=== PATIENT | female | born 1990 | race Hispanic/Latino ===

== ENCOUNTER 2017-06-12 19:29 | Emergency (ER) | payer MEDICAID ==
[2017-06-12 19:46] VITALS: RESP 16; TEMP 97.8
[2017-06-12] MEDS ORDERED: Dexamethasone 4 mg/1 ml IVP STA (20:28)
--- NOTE | 2017-06-12 20:38 | C.PDOC ---
History Of Present Illness The patient reports 4-5 days history of swelling to the left jaw. The patient was being treated for a possible dental abscess with Clindamycin, but then had sudden onset of swelling to the right side of the jaw today. Patient reports that she had a dental abscess several weeks ago, and had a tooth extracted by her dentist. Denies trauma, fever, neck pain, pain, or sore throat. Time Seen by Provider: 06/12/17 19:56 Chief Complaint (Nursing): Dental Pain History Per: Patient History/Exam Limitations: no limitations Onset/Duration Of Symptoms: Sudden Onset Current Symptoms Are (Timing): Still Present Pain Scale Rating Of: 2 Quality: Positive for: "Pain" Recent travel outside of the [place]: No Past Medical History Reviewed: Historical Data, Nursing Documentation, Vital Signs Vital Signs: Last Vital Signs Temp 97.8 F 06/12/17 19:39 Pulse 99 H 06/12/17 19:39 Resp 16 06/12/17 19:39 BP 111/76 06/12/17 19:39 Pulse Ox 97 06/12/17 22:50 - Medical History PMH: Asthma Family History: States: No Known Family Hx - Social History Hx Alcohol Use: No Hx Substance Use: Yes - Immunization History Hx Tetanus Toxoid Vaccination: No Hx Influenza Vaccination: No Hx Pneumococcal Vaccination: No Review Of Systems Except As Marked, All Systems Reviewed And Found Negative. Physical Exam - Physical Exam Appears: Non-toxic, No Acute Distress Skin: Normal Color, Warm, No Pale, No Rash Head: Other (Moderate swelling to the right mandible. Mild swelling to the left mandible. No evidence of erythema, tenderness or flunctuance. ) Eye(s): bilateral: Normal Inspection, PERRL, EOMI Ear(s): Bilateral: Normal Oral Mucosa: Moist, No Trismus Tongue: Normal Appearing, No Swelling Lips: Normal Appearing, No Swelling Teeth: Caries, Other (poor dentition) Throat: No Erythema, No Exudate Neck: Normal ROM, Supple Lymphatic: Normal Exam Chest: Symmetrical, No Tenderness Cardiovascular: Rhythm Regular Respiratory: Normal Breath Sounds Extremity: Normal ROM, No Swelling Neurological/Psych: Oriented x3, Normal Speech, Normal Motor Gait: Steady ED Course And Treatment - Laboratory Results Result Diagrams: 06/12/17 20:39 06/12/17 20:39 O2 Sat by Pulse Oximetry: 97 (on RA) Pulse Ox Interpretation: Normal Progress Note: The CT results shows inflammation and no signs of abscess. On re- exam, the patient reports she has no pain at this time. Lungs are CTA, heart is RRR, abdomen is soft, non-tender and patient is tolerating PO well. ambulatory in the ED steady gait. The patient was instructed to continue taking the Clindamycin until completed. Medical Decision Making Medical Decision Making: Differential Diagnosis: Parotiditis, Mumps, dental abscess, allergic reaction, facial trauma, mass/lipoma. Patient has had immunizations for MMR as a child. CT scan results. Axial computed tomography images of the neck with intravenous contrast. This CT exam was performed using one or more of the following dose reduction techniques: automated exposure control, adjustment of the mA and/or kV according to patient size, and/or use of iterative reconstruction technique. Coronal and sagittal reformatted images were created and reviewed. CONTRAST: 100 mL of visipaque 320 administered intravenously. COMPARISON: No relevant prior studies available. FINDINGS: Nasopharynx: Unremarkable. Oropharynx: No significant tonsillar enlargement. No peritonsillar abscess. Hypopharynx: Unremarkable. Larynx: Unremarkable. Normal epiglottis. Trachea: Unremarkable. Retropharyngeal space: Unremarkable. Submandibular/parotid glands: Glands are normal in size. Thyroid: No enlarged or calcified nodules. Bones/joints: No acute fracture. Soft tissues: Asymmetry within the soft tissues of the mandible, with infiltrative change along the soft tissues overlying the right mandible. No rim-enhancing fluid collection is detected. Vasculature: No acute findings. Lymph nodes: Multiple subcentimeter lymph nodes are detected within the bilateral submandibular and submental region, none pathologically enlarged. Lung apices: Unremarkable as visualized. IMPRESSION: Infiltrative change within the soft tissues in the area of clinical concern, without abscess formation, as detailed above. Thank you for allowing us to participate in the care of your patient. Dictated and Authenticated by: Ashley Crocker MD 06/12/2017 10:31 PM Eastern Time ([place] & [place]) Disposition - Disposition Referrals: [facility] [Outside] Disposition: HOME/ ROUTINE Disposition Time: 22:46 Condition: GOOD Additional Instructions: Follow up with the medical doctor within 1-2 days without fail. Return if worsened. Prescriptions: DiphenhydrAMINE [Benadryl] 25 mg PO QID #28 cap predniSONE [Prednisone] 20 mg PO BID #10 tab Instructions: Angioedema (ED) Forms: [facility] (Croatian) - Clinical Impression Clinical Impression: Dental caries, Facial swelling
[2017-06-12 20:42] LABS: BASO % 0.5 % (0.0-2.0); EOS # 0.2 K/uL (0.0-0.7); EOS % 3.1 % (0.0-4.0); HEMATOCRIT 38.3 % (34.0-47.0); LYMPH # 3.1 K/uL (1.0-4.3); LYMPH % 39.9 % (20.0-40.0); MEAN CELL VOLUME 86.5 fL (81.0-99.0); MEAN CORPUSCULAR HEMOGLOBIN 29.9 pg (27.0-31.0); MEAN CORPUSCULAR HGB CONC 34.5 g/dL (33.0-37.0); MEAN PLATELET VOLUME 8.1 fL (7.2-11.7); MONO # 0.5 K/uL (0.0-0.8); MONO % 6.8 % (0.0-10.0); RED CELL DISTRIBUTION WIDTH 13.3 % (11.5-14.5); WHITE BLOOD COUNT 7.8 K/uL (4.8-10.8)
[2017-06-12] MEDS ORDERED: Dexamethasone 4 mg/1 ml ONE (20:42)
[2017-06-12 20:51] LABS: CHLORIDE 100 mmol/L (98-107); SODIUM 138 mmol/L (132-148)
[2017-06-12 20:52] LABS: POTASSIUM 4.5 mmol/L (3.6-5.2)
[2017-06-12 20:54] LABS: CARBON DIOXIDE 24 mmol/L (22-30); GFR AFRICAN-AMERICAN > 60
[2017-06-12 20:55] LABS: BLOOD UREA NITROGEN 14 mg/dL (7-17); CALCIUM 9.2 mg/dl (8.6-10.4); GLUCOSE,RANDOM 85 mg/dL (65-105)
[2017-06-12] MEDS ORDERED: Iodixanol 320 MG/ML 100 ML BOTTLE IV ONE (21:26)
--- NOTE | 2017-06-12 22:31 | CT ---
EXAM: CT Neck With Intravenous Contrast CLINICAL HISTORY: 26 years old, female; Signs and symptoms; Mass, lump, or swelling in neck; Additional info: Swelling to the jaovn mandible r > l, R/O abscess TECHNIQUE: Axial computed tomography images of the neck with intravenous contrast. This CT exam was performed using one or more of the following dose reduction techniques: automated exposure control, adjustment of the mA and/or kV according to patient size, and/or use of iterative reconstruction technique. Coronal and sagittal reformatted images were created and reviewed. CONTRAST: 100 mL of visipaque 320 administered intravenously. COMPARISON: No relevant prior studies available. FINDINGS: Nasopharynx: Unremarkable. Oropharynx: No significant tonsillar enlargement. No peritonsillar abscess. Hypopharynx: Unremarkable. Larynx: Unremarkable. Normal epiglottis. Trachea: Unremarkable. Retropharyngeal space: Unremarkable. Submandibular/parotid glands: Glands are normal in size. Thyroid: No enlarged or calcified nodules. Bones/joints: No acute fracture. Soft tissues: Asymmetry within the soft tissues of the mandible, with infiltrative change along the soft tissues overlying the right mandible. No rim-enhancing fluid collection is detected. Vasculature: No acute findings. Lymph nodes: Multiple subcentimeter lymph nodes are detected within the bilateral submandibular and submental region, none pathologically enlarged. Lung apices: Unremarkable as visualized. IMPRESSION: Infiltrative change within the soft tissues in the area of clinical concern, without abscess formation, as detailed above.
[2017-06-12 23:00] VITALS: BP 105/75; PULSE 68; O2SAT 100
== END 2017-06-12 23:00 | disposition home or self-care (01) ==
LOC: C.ER 19:29
DX: K02.9 Dental caries, unspecified (principal); R22.0 Localized swelling, mass and lump, head
CPT/HCPCS: 70491; 80048; 85025; 96374; 99283; J1100; Q9967